=== PATIENT | female | born 1980 | race Caucasian/White ===

== ENCOUNTER 2018-01-17 13:28 | Emergency (ER) | payer MEDICAID, OTHER ==
[~2018-01-17] VITALS: Ht 170.2 cm; Wt 63.5 kg
[2018-01-17 14:12] LABS: Basophils # (auto) 0 uL; Basophils % (auto) 0.6 % (0.0-2.0); Eosinophils # (auto) 0.1 uL; Eosinophils % (auto) 0.8 % (0.0-7.0); Hematocrit 43.5 % (36.0-46.0); Hemoglobin 14.7 g/dL (12.2-16.2); Lymphocytes # (auto) 2.4 uL; Mean Corpuscular Hemoglobin 31.9 pg (28.0-32.0); Mean Corpuscular Hgb Conc. 33.8 g/dL (32.0-36.0); Mean Corpuscular Volume 94.4 fL (80.0-100.0); Monocytes # (auto) 0.4 uL; Monocytes % (auto) 5.5 % (0.0-12.0); Neutrophils # (auto) 4.6 uL; Neutrophils % (auto) 61.1 % (37.0-80.0); Platelet Count (auto) 223 10^3/uL (140-450); Red Blood Cells 4.61 10^6/uL (4.0-5.20); Red Cell Distribution Width 12.6 % (11.8-14.3); White Blood Cell 7.5 10^3/uL (4.4-10.8)
[2018-01-17 14:32] LABS: Albumin 3.9 g/dL (3.4-5.0); BUN/Creatinine Ratio 15.6; Potassium 4.4 mmol/L (3.5-5.1)
[2018-01-17 14:34] LABS: Bilirubin, Total 0.3 mg/dL (0.2-1.0); Total Protein 7.7 g/dL (6.4-8.2)
[2018-01-17 16:53] LABS: Urine Pregnacy Test Negative (Negative)
[2018-01-17 16:56] LABS: Urine Bacteria MOD /hpf (None Seen); Urine Blood Negative /uL (Negative); Urine Mucus FEW (None Seen); Urine Specific Gravity 1.014 (1.001-1.035); Urine WBC 5 /hpf (0 - 5)
[2018-01-17 17:07] LABS: Alcohol, Urine < 3.0 mg/dL (0-5); Amphetamine Screen, Urine NEGATIVE (NEGATIVE); Barbiturate Scree,Urine NEGATIVE (NEGATIVE); Benzodiazephine Screen, Urine NEGATIVE (NEGATIVE); Cannabinoid Screen, Urine POSITIVE (NEGATIVE); Cocaine Screen, Urine NEGATIVE (NEGATIVE); Opiate Scree,Urine POSITIVE (NEGATIVE); Phencyclidine Screen, Urine NEGATIVE (NEGATIVE)
[2018-01-17 18:30] VITALS: BP 120/82
== END 2018-01-17 18:44 | disposition home or self-care (01) ==
LOC: ER 13:38
DX: F41.0 Panic disorder [episodic paroxysmal anxiety] (principal); R55 Syncope and collapse; F32.9 Major depressive disorder, single episode, unspecified; R42 Dizziness and giddiness
CPT/HCPCS: 36415; 70450; 71045; 80053; 80307; 81001; 81025; 85025; 93005